=== PATIENT | female | born 1960 | race Caucasian/White ===

== ENCOUNTER 2016-11-11 11:19 | Emergency (ER) | payer BC, OTHER ==
[~2016-11-11] VITALS: Ht 175.3 cm; Wt 97.6 kg
[2016-11-11 11:23] VITALS: BP 155/85; PULSE 70; RESP 16; TEMP 98; O2SAT 96
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
[2016-11-11] MEDS ORDERED: COUM5TAB PO (11:33)
[2016-11-11] MEDS ORDERED: HYDR12.57 PO (11:33)
[2016-11-11] MEDS ORDERED: AMBI5TAB PO (11:33)
[2016-11-11] MEDS ORDERED: ACYC200C66 PO (11:34)
[2016-11-11] MEDS ORDERED: CEFD300C PO (11:37)
[2016-11-11] MEDS ORDERED: FLUT1SPR5 EACH NARE (11:37)
== END 2016-11-11 11:43 | disposition home or self-care (01) ==
LOC: PHEFT 11:19
DX: H92.01 Otalgia, right ear (principal); J01.90 Acute sinusitis, unspecified
CPT/HCPCS: 99284